=== PATIENT | female | born 1990 | race Caucasian/White ===

== ENCOUNTER 2019-06-24 07:18 | Inpatient (IN) | payer OTHER ==
[2019-06-24] MEDS ORDERED: fentaNYL 100 MCG/2 ML SDV IVPUSH PRN (08:50)
[2019-06-24] MEDS ORDERED: Acetaminophen 325 MG Tab PO PRN ×2 (08:50→18:40)
[2019-06-24] MEDS ORDERED: Ondansetron 4 MG/2 ML SDV IV PRN (08:50)
[2019-06-24] MEDS ORDERED: Lidocaine 1% 30 ML SDV INJECT PRN (08:50)
[2019-06-24] MEDS ORDERED: Tranexamic Acid 1,000 MG in Sodium Chloride 0.9% 100 ML IV PRN ×2 (08:50→18:40)
[2019-06-24] MEDS ORDERED: Sodium Chloride 0.9% 10 ML Syringe FLUSH PRN ×2 (08:50→18:40)
[2019-06-24] MEDS ORDERED: Lactated Ringers 1,000 ML IV ONE (08:50)
[2019-06-24] MEDS ORDERED: Misoprostol 400 MCG (4 X 100 MCG TAB) RECTAL PRN ×2 (08:50→18:40)
[2019-06-24] MEDS ORDERED: Methylergonovine 0.2 MG/1 ML Amp IM PRN (08:50)
[2019-06-24] MEDS ORDERED: Carboprost Tromethamine 250 MCG/1 ML Amp IM PRN ×2 (08:50→18:40)
[2019-06-24] MEDS ORDERED: Nalbuphine 10 MG/1 ML Vial IV PRN (08:54)
[2019-06-24] MEDS ORDERED: Nalbuphine 10 MG/1 ML Vial IM PRN (08:54)
--- NOTE | 2019-06-24 08:58 | PCM.LDHP ---
L&D History of Present Illness - General Admit Problem/Dx: Patient Status Order with Admit Dx/Problem 06/24/19 08:51 Patient Status [ADT] Routine Admission Diagnosis/Problem Admission Diagnosis/Problem care - Related Data Allergies/Adverse Reactions: Allergies Allergy/AdvReac Type Severity Reaction Status Date / Time No Known Allergies Allergy Verified 06/24/19 08:25 Home Medications: Home Meds #103/Iron Fumarate/Fa [ ] 1 tab PO DAILY 06/24/19 [ History] Past Medical History - Past Health History Medical/Surgical History: Denies Medical/Surgical History [employer] History: Reports: - Patient Data Lab Results Last 24 hrs: Laboratory Results - last 24 hr 06/24/19 Range/Units 08:10 Membrane Rupture Positive (NEG) Orders Last 24hrs: Active Orders 24 hr Category Date Time Status Patient Status [ADT] Routine ADT 06/24/19 08:51 Ordered Communication Order [RC] ASDIRECTED Care 06/24/19 08:51 Ordered Heart Tones [RC] PER UNIT ROUTINE Care 06/24/19 08:51 Ordered Nitrazine Amniotic Fluid POC Testing [POC Labs] [RC] Care 06/24/19 08:02 Active ASDIRECTED Nitrous Oxide Delivery [RC] ASDIRECTED Care 06/24/19 08:57 Ordered Notify Provider Vital Signs OB [RC] ASDIRECTED Care 06/24/19 08:51 Ordered Notify Provider [RC] PRN Care 06/24/19 08:51 Ordered OB Check [OM.PC] Click To Edit Care 06/24/19 08:02 Ordered OB Discontinue Nitrous Oxide [RC] ASDIRECTED Care 06/24/19 08:57 Ordered Pump Management, Intrathecal [RC] ASDIRECTED Care 06/24/19 08:50 Ordered Up ad Queenie [RC] ASDIRECTED Care 06/24/19 08:51 Ordered Vital Signs [RC] PER UNIT ROUTINE Care 06/24/19 08:51 Ordered Clear Liquid Diet [DIET] Diet 06/24/19 Lunch Ordered ALANINE AMINOTRANSFERASE,ALT [CHEM] Routine Lab 06/24/19 08:54 Ordered ASPARTATE AMNIOTRANSFERASE,AST [CHEM] Routine Lab 06/24/19 08:54 Ordered BLOOD UREA NITROGEN,BUN [CHEM] Routine Lab 06/24/19 08:54 Ordered CBC W/O DIFF,HEMOGRAM [HEME] Routine Lab 06/24/19 08:54 Ordered CREATININE W/GFR [CHEM] Routine Lab 06/24/19 08:54 Ordered LACTATE DEHYDROGENASE,LDH [CHEM] Routine Lab 06/24/19 08:54 Ordered PROTEIN/CREATININE RATIO,URINE [URCHEM] Routine Lab 06/24/19 08:54 Ordered UA W/O MICROSCOPIC [URIN] Routine Lab 06/24/19 08:54 Ordered URIC ACID [CHEM] Routine Lab 06/24/19 08:54 Ordered Acetaminophen [Tylenol] Med 06/24/19 08:50 Ordered 650 mg PO Q4H PRN Carboprost Tromethamine [Hemabate DS] Med 06/24/19 08:50 Ordered 250 mcg IM ASDIRECTED PRN Lactated Ringers @ 125 MLS/HR(1000ml) Med 06/24/19 09:00 Ordered Lactated Ringers [Ringers, Lactated] 1,000 ml IV ASDIRECTED Lactated Ringers [Ringers, Lactated] 1,000 ml Med 06/24/19 08:50 Ordered IV BOLUS Lidocaine 1% [Xylocaine-MPF 1%] Med 06/24/19 08:50 Ordered 30 ml INJECT ASDIRECTED PRN Methylergonovine [Methergine] Med 06/24/19 08:50 Ordered 0.2 mg IM ASDIRECTED PRN Nalbuphine [Nubain] Med 06/24/19 08:54 Ordered 10 mg IV Q3H PRN Nalbuphine [Nubain] Med 06/24/19 08:54 Ordered 20 mg IM Q3H PRN Ondansetron [Zofran] Med 06/24/19 08:50 Ordered 4 mg IV Q4H PRN Oxytocin 30 Units in NS @ 2 MUNITS/MIN(500ml) Med 06/24/19 09:00 Ordered Oxytocin/Normal Saline [Pitocin in NS 30 UNIT/500 ML] 30 unit in 500 ml IV TITRATE Sodium Chloride 0.9% [Saline Flush] Med 06/24/19 08:50 Ordered 10 ml FLUSH ASDIRECTED PRN Tranexamic Acid [Cyklokapron] 1,000 mg Med 06/24/19 08:50 Ordered Sodium Chloride 0.9% [Normal Saline] 100 ml IV ONETIME fentaNYL [Sublimaze] Med 06/24/19 08:50 Ordered 50 mcg IVPUSH Q1H PRN miSOPROStoL [Cytotec] Med 06/24/19 08:50 Ordered 800 mcg RECTAL ASDIRECTED PRN Saline Lock Insert [OM.PC] Routine Oth 06/24/19 08:51 Ordered Resuscitation Status Routine Resus Stat 06/24/19 08:50 Ordered
[2019-06-24] MEDS ORDERED: Oxytocin/Normal Saline 30 UNIT/500 ML BAG IV SCH (09:00)
[2019-06-24] MEDS: Lactated Ringers 1,000 ML IV SCH ×3 (09:58→18:07)
[2019-06-24] MEDS ORDERED: fentaNYL 100 MCG/2 ML SDV ONE (17:53)
[2019-06-24] MEDS ORDERED: EPINEPHrine 1 MG/1 ML Amp ONE (17:53)
--- NOTE | 2019-06-24 18:28 | PCM.PRNOTE ---
- Free Text/Narrative Note: Requested to provide analgesia to full term patient in severe pain. Upon entering the room, patient is sitting on edge of bed complaining of severe abdominal/pelvic pain and discomfort. Procedure was discussed with patient including adverse outcomes and expectations. Pt consented to analgesia, SAB/ IT. Pt placed into a proper sitting position. Landmarks for SAB/IT were identified and marked. Hands were washed and appropriate PPE was applied. Back was prepped with betadine x3. A sterile, transparent, fenestrated drape was applied. Excess betadine was removed. Using 3 mL of a 1% lidocaine solution , a skin wheel was placed at the L2/L3 interspace. A 24 ga (4 inch) Pencan spinal needle was inserted until positive for CSF. Negative for heme or paresthesias. Injected fentanyl 30 mcg, sufentanil 25 mcg, and 7.5 mg of a 0.75 % bupivacaine solution with an epi wash. Pt was placed left lateral position for approximately 20 minutes. There were zero complications or adverse outcomes. Will continue to monitor. Procedure Date & Time: 06-24-19 [id number]
[2019-06-24] MEDS ORDERED: Zolpidem 5 MG Tab PO PRN (18:40)
[2019-06-24] MEDS ORDERED: Oxytocin 10 Units/1 ML SDV IM PRN (18:40)
[2019-06-24] MEDS ORDERED: Benzocaine/Menthol 20%-0.5% Spray 56 GM Canister TOP PRN (18:40)
[2019-06-24] MEDS ORDERED: Simethicone 80 MG Tab.Chew PO PRN (18:40)
[2019-06-24] MEDS: Docusate Sodium 100 MG Cap PO PRN (23:14)
[2019-06-24] MEDS: Ibuprofen 800 MG Tab PO PRN (23:15)
[2019-06-25] MEDS: Ibuprofen 800 MG Tab PO PRN ×2 (09:29→22:15)
[2019-06-25] MEDS: Prenatal Multivitamin with Calcium/Folic Acid/Iron Tab PO SCH (09:29)
--- NOTE | 2019-06-25 11:50 | PN ---
DATE: 06/25/2019 SUBJECTIVE: The patient is day 1 from a vaginal delivery at term. She did have gestational thrombocytopenia. Preeclampsia labs were normal. Protein-creatinine ratio was 0.15. Only other problem this the patient did see the maternal medicine doctor for possible abnormal , however, their ultrasound was normal. The patient this morning states lochia is minimal. OBJECTIVE: VITAL SIGNS: The patient's temperature 37, heart rate 54 to 69, blood pressure systolic 119 to 147 over 63 to 78, respiratory rate 16. ABDOMEN: The patient's fundus is firm below the umbilicus. EXTREMITIES: Have no tenderness, no edema. LABORATORY DATA: Blood type is O positive. Rubella immune. Hemoglobin predelivery was 13.3, platelets predelivery 139. This morning, white blood cell count of 9.2, hemoglobin 10.4, platelets 100. ASSESSMENT AND PLAN: day #1, status post vaginal delivery at term. Mom and baby are both doing well. The patient does have gestational thrombocytopenia, but overall is doing well since delivery. We will continue care and likely discharge tomorrow. [facility] /[id number]
--- NOTE | 2019-06-25 20:25 | DEL ---
DATE: 06/24/2019 The patient delivered on 06/24/2019 at [facility]. The patient's pre-delivery diagnosis is intrauterine at term with gestational thrombocytopenia, who was admitted with spontaneous rupture of membranes. The delivery was a normal spontaneous vaginal delivery. Delivering clinician was Dr. Wick. FINDINGS: There was a viable , scores 9 and 9. Baby did weigh 6 pounds, 15 ounces or 3147 g. There were 2 first-degree labial lacerations, which were hemostatic, therefore not repaired. PROCEDURE IN DETAIL: The patient progressed to complete after receiving intrathecal. There were still some membranes left, those were ruptured, and then the patient easily pushed the infant's head out. Shoulder was delivered with some mild traction. Body was delivered and the infant was placed on the maternal abdomen. Delayed cord clamping was observed. The cord was then cut, clamped, and the cord blood was collected. The placenta was then delivered with some massage and gentle traction. Placenta was delivered intact. The uterus did become firm after third stage Pitocin and some uterine massage. The perineum was then examined and there were 2 first-degree labial lacerations, both of those were hemostatic. Therefore, no repair was done. Estimated blood loss was 200 mL. At the end of the procedure, mom and baby were both doing well. [facility] /[id number]
[2019-06-25] MEDS: Docusate Sodium 100 MG Cap PO PRN (22:15)
[2019-06-26 09:47] VITALS: BP 122/78; PULSE 51
[2019-06-26] MEDS: Prenatal Multivitamin with Calcium/Folic Acid/Iron Tab PO SCH (09:53)
[2019-06-26] MEDS ORDERED: fentaNYL 100 MCG/2 ML SDV ITHECAL ONE (12:14)
[2019-06-26] MEDS ORDERED: EPINEPHrine 1 MG/1 ML Amp ONE (12:14)
--- NOTE | 2019-06-26 13:23 | DISCH ---
DATE: 06/24/2019 SUBJECTIVE: The patient is day 2, status post vaginal delivery. Mom and baby are both doing well. Lochia is minimal. LABORATORY DATA: The patient's blood type is O-positive. She is rubella immune. OBJECTIVE: Vital Signs: Temperature 37, heart rate 51 to 69, blood pressure 103 to 124 systolic over 60 to 90 diastolic, respiratory rate 15 to 18, and O2 saturation 98% to 100%. Pelvic: Fundus is firm below the umbilicus. Extremities: Have no tenderness or edema. ASSESSMENT AND PLAN: day 2, status post vaginal delivery. Mom and baby are both doing well. We will discharge them home with followup with their primary for 6-week visit. [facility] /[id number]
== END 2019-06-26 12:15 | disposition home or self-care (01) | DRG 807 ==
LOC: DL.OBCHECK 07:18 → DL.OB 08:51 → OBSVTOIN 18:30 → DL.OB 18:30
PROVIDERS: ADMIT Family Medicine; ATTEND Family Medicine
PROC: 10E0XZZ Delivery of Products of Conception, External Approach (ICD-10-PCS; principal; 2019-06-24)
PROC: 0UQMXZZ Repair Vulva, External Approach (ICD-10-PCS; 2019-06-24)
DX: O99.12 Other diseases of the blood and blood-forming organs and certain disorders involving the immune mechanism complicating childbirth (principal); Z37.0 Single live birth; Z3A.39 39 weeks gestation of pregnancy; D69.6 Thrombocytopenia, unspecified; O70.0 First degree perineal laceration during delivery
CPT/HCPCS: 36415; 81003; 82565; 82570; 83615; 84112; 84156; 84450; 84460; 84520; 84550; 85027; A9270-GY; J0171; J2300; J2405; J2590; J3010; J7120

== ENCOUNTER 2022-02-19 03:46 | Inpatient (IN) | payer OTHER ==
[2022-02-19] MEDS ORDERED: Penicillin G Potassium 5 MILLUNITS in Sodium Chloride 0.9% 100 ML IV ONE (04:02)
[2022-02-19] MEDS ORDERED: Ondansetron 4 MG/2 ML SDV IVPUSH PRN (04:32)
[2022-02-19] MEDS ORDERED: Tranexamic Acid 1,000 MG in Sodium Chloride 0.9% 100 ML IV PRN (04:32)
[2022-02-19] MEDS ORDERED: Sodium Chloride 0.9% 10 ML Syringe FLUSH PRN (04:32)
[2022-02-19] MEDS ORDERED: Lactated Ringers 1,000 ML IV ONE (04:32)
[2022-02-19] MEDS ORDERED: Lidocaine 1% 30 ML SDV INJECT PRN (04:32)
[2022-02-19] MEDS ORDERED: Methylergonovine 0.2 MG/1 ML Amp IM PRN (04:32)
[2022-02-19] MEDS ORDERED: Acetaminophen 325 MG Tab PO PRN (04:32)
[2022-02-19] MEDS ORDERED: Misoprostol 400 MCG (4 X 100 MCG TAB) RECTAL PRN (04:32)
[2022-02-19] MEDS ORDERED: Carboprost Tromethamine 250 MCG/1 ML Amp IM PRN (04:32)
[2022-02-19] MEDS ORDERED: Lactated Ringers 1,000 ML IV SCH (04:45)
[2022-02-19] MEDS ORDERED: Penicillin G Potassium 3 MILLUNITS in Sodium Chloride 0.9% 100 ML IV SCH ×2 (04:45→08:30)
[2022-02-19] MEDS ORDERED: Oxytocin/Normal Saline 30 UNIT/500 ML BAG IV SCH (04:45)
[2022-02-19] MEDS ORDERED: Benzocaine/Menthol 20%-0.5% Spray 78 GM Cannister TOP PRN (06:31)
[2022-02-19] MEDS ORDERED: Simethicone 80 MG Tab.Chew PO PRN (06:31)
[2022-02-19] MEDS ORDERED: Oxytocin 10 Units/1 ML SDV IM PRN (06:31)
[2022-02-19] MEDS: Prenatal Multivitamin with Calcium/Folic Acid/Iron Tab PO SCH (14:41)
[2022-02-20] MEDS: Docusate Sodium 100 MG Cap PO PRN ×2 (00:54→21:05)
[2022-02-20] MEDS: Ibuprofen 800 MG Tab PO PRN ×3 (00:54→17:25)
[2022-02-20] MEDS: Prenatal Multivitamin with Calcium/Folic Acid/Iron Tab PO SCH (09:04)
[2022-02-20] MEDS: Acetaminophen 325 MG Tab PO PRN (21:05)
[2022-02-21] MEDS: Ibuprofen 800 MG Tab PO PRN ×2 (01:01→09:02)
[2022-02-21] MEDS: Acetaminophen 325 MG Tab PO PRN (03:50)
[2022-02-21] MEDS: Prenatal Multivitamin with Calcium/Folic Acid/Iron Tab PO SCH (09:02)
[2022-02-21] MEDS: Docusate Sodium 100 MG Cap PO PRN (09:02)
[2022-02-21 09:47] VITALS: BP 126/66; PULSE 56
== END 2022-02-21 09:45 | disposition home or self-care (01) | DRG 807 ==
LOC: DL.OBCHECK 03:46 → DL.OB 04:11 → OBSVTOIN 06:15 → DL.OB 06:15
PROVIDERS: ADMIT Family Medicine; ATTEND Family Medicine
PROC: 10E0XZZ Delivery of Products of Conception, External Approach (ICD-10-PCS; principal; 2022-02-19)
PROC: 10907ZC Drainage of Amniotic Fluid, Therapeutic from Products of Conception, Via Natural or Artificial Opening (ICD-10-PCS; 2022-02-19)
DX: O99.824 Streptococcus B carrier state complicating childbirth (principal); Z37.0 Single live birth; Z3A.37 37 weeks gestation of pregnancy; O99.344 Other mental disorders complicating childbirth; F41.8 Other specified anxiety disorders; Z20.822 Contact with and (suspected) exposure to COVID-19
CPT/HCPCS: 36415; 59409; 85025; A9270-GY; J2540; J2590; J7120; U0002